=== PATIENT | female | born 1975 | race Caucasian/White ===

== ENCOUNTER 2016-12-06 06:16 | Day surgery (SDC) | payer OTHER ==
[2016-12-02 08:48] VITALS: BMI 29.9
[2016-12-06] MEDS ORDERED: Lidocaine 1% Inj (20ml) ONE (07:46)
--- NOTE | 2016-12-06 07:52 | CP.SDSHP ---
Same Day Surgery H & P - History Proposed Procedure: Excision of L ankle mass Pre-Op Diagnosis: L ankle mass - Previous Medical/Surgical History Previous Surgical History: 3 c-sections, vocal chord cyst - Allergies Allergies: Allergies Penicillins Allergy (Verified 12/06/16 06:42) ANAPHYLAXIS - Current Medications Current Medications: Tobramycin gtt for L eye - Physical Exam General Appearance: well nourished, well developed female Vital Signs: Vital Signs 12/06/16 07:02 Temperature 98.5 F Pulse Rate 68 Respiratory 18 Rate Blood Pressure 124/88 O2 Sat by Pulse 95 Oximetry Mental Status: Alert & Oriented x3 Neuro: WNL (grossly normal) Heart: WNL Lungs: WNL GI: WNL - {Optional Preform as Required} Integument: Other (Medial L ankle mass ~1x1cm, mobile nodule, slight TTP) Other Pertinent Findings: L eye conjunctivitis - Impression Impression: 41F with L ankle mass Pt. Evaluated Today:Candidate for Anesthesia & Procedure: Yes Short Stay Discharge - Short Stay Discharge Admitting Diagnosis/Reason for Visit: L72.3 Disposition: HOME/ ROUTINE Referrals: FAMILY PROVIDER,NO [Primary Care Provider] - Additional Instructions (Diet, Activity): Regular diet Call for fever more than 101 or pain uncontrolled by meds Follow up with Dr. Kohli in 2 weeks Ok to shower in 24 hours, no baths, keep dressing dry.
[2016-12-06] MEDS ORDERED: Lidocaine 1% Inj (20ml) IJ ONE (08:00)
--- NOTE | 2016-12-06 08:36 | PCM.SURG1 ---
Surgeon's Initial Post Op Note - Surgeon's Notes Surgeon: Seun Face Worker: [id number] Type of Anesthesia: Local Pre-Operative Diagnosis: L ankle mass Operative Findings: L ankle cyst Post-Operative Diagnosis: L ankle cyst Operation Performed: Excision of L ankle cyst Specimen/Specimens Removed: L ankle cyst Estimated Blood Loss: EBL {In ML}: 5 Blood Products Given: N/A Drains Used: No Drains Post-Op Condition: Good Date of Surgery/Procedure: 12/06/16 Time of Surgery/Procedure: 08:00
--- NOTE | 2016-12-06 09:54 | OP ---
PROCEDURE DATE: 12/06/2016 SURGEON: Dr. Kohli. CASINO CAGE MANAGER: Dr. Denise. ANESTHESIA: Local 1% lidocaine. PREOPERATIVE DIAGNOSIS: Cyst, left ankle. POSTOPERATIVE DIAGNOSIS: Cyst, left ankle. PROCEDURE: Excision of cyst, left ankle. DESCRIPTION OF OPERATION: With the patient in the supine position, the left ankle and foot were prep ped and draped in the usual sterile manner. A previously marked mass was noted on the medial aspect of the left ankle approximately 1 inch above the malleolus and slightly posterior. This was a mobile mass with a bit of fixation to the skin at what appeared to be a central punctum. The skin surround ing this area was infiltrated with 1% lidocaine and an elliptical incision was made encompassing the central punctum. A thick walled structure containing what appeared to be necrotic material was then easily from the overlying skin and the surrounding subcutaneous tissues and resected along with the overlying ellipse of skin. The operative site was then inspected for hemostasis and closure was performed with interrupted sutures of 5-0 nylon. A dry sterile dressing was applied. The patie nt tolerated the procedure well and transferred back to day stay in stable condition. Estimated bloo d loss for the procedure was 5 mL. Yelena Kohli MD cc: [id number] TT: 12/06/2016 09:54:04 nv
[2016-12-06 10:19] VITALS: BP 130/88; PULSE 84; RESP 20; TEMP 97.9; O2SAT 96
== END 2016-12-06 10:21 | disposition home or self-care (01) ==
LOC: H.OPSURG 06:16
PROVIDERS: ATTEND Specialist
DX: L72.3 Sebaceous cyst (principal)